=== PATIENT | male | born 1960 | race Two or more races ===

== ENCOUNTER → 2022-05-09 | Outpatient (CLI) | payer OTHER | END | disposition home or self-care (01) | LOC: RADPV 08:54 | PROVIDERS: ATTEND Chiropractor | DX: I70.0 Atherosclerosis of aorta (principal); M47.814 Spondylosis without myelopathy or radiculopathy, thoracic region; M17.12 Unilateral primary osteoarthritis, left knee; M17.11 Unilateral primary osteoarthritis, right knee; I25.9 Chronic ischemic heart disease, unspecified; R06.02 Shortness of breath; M84.30XA Stress fracture, unspecified site, initial encounter for fracture; X58.XXXA Exposure to other specified factors, initial encounter | CPT/HCPCS: 71046; 93306 ==